=== PATIENT | female | born 1965 | race Caucasian/White ===

== ENCOUNTER 2018-02-23 09:47 | Emergency (ER) | payer OTHER ==
[2018-02-23 09:57] VITALS: BP 121/84; PULSE 62; RESP 18; TEMP 97.8
--- NOTE | 2018-02-23 10:13 | ED ---
General Adult HPI - General Chief complaint: Needlestick/Exposure Stated complaint: [facility] - needle stick Source: patient Mode of arrival: ambulatory Limitations: no limitations - History of Present Illness Initial comments: Dictation was produced using VIL[employer] dictation software. please excuse any grammatical, word or spelling errors. Chief Complaint: 52-year-old female with no significant past medical history presents with accidental needle stick at work on Monday. 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 Patient was wearing a glove at the time. She reported directly to occupational health and was instructed to follow-up with emergency department at a later date. Patient does not have detailed medical history of the patient. She reports that [facility]. She does not know if patient had history of hepatitis B, hepatitis C or HIV. She is unsure if source patient was tested for hepatitis B, hepatitis C or HIV after the exposure. Past Medical History: [reviewed, none to report] Past Surgical History:[reviewed, none to report] Social History: [denies alcohol, tobacco or illicit drug use] Family History: reviewed and noncontributory The ROS documented in this emergency department record has been reviewed and confirmed by me. Those systems with pertinent positive or negative responses have been documented in the HPI. All other systems are other negative and/or noncontributory. - Related Data Home Medications Medication Instructions Recorded Confirmed Ibuprofen [Motrin Ib] 400 mg PO Q6H PRN 02/23/18 02/23/18 L.acidoph,Paracasei, B.lactis 1 cap PO DAILY 02/23/18 02/23/18 [Probiotic] Allergies Allergy/AdvReac Type Severity Reaction Status Date / Time codeine Allergy Unknown Verified 02/23/18 10:02 omeprazole Allergy Hallucinati Verified 02/23/18 10:02 ons Review of Systems ROS Statement: Those systems with pertinent positive or pertinent negative responses have been documented in the HPI. ROS Other: All systems not noted in ROS Statement are negative. Past Medical History Past Medical History: No Reported History History of Any Multi-Drug Resistant Organisms: None Reported Past Surgical History: No Surgical Hx Reported Past Psychological History: No Psychological Hx Reported Smoking Status: Former smoker Past Alcohol Use History: None Reported Past Drug Use History: None Reported General Exam - General Exam Comments Initial Comments: Vitals: Vital signs upon arrival are within acceptable limits. PHYSICAL EXAM: General Impression: Alert and oriented x3, not in acute distress HEENT: Normocephalic atraumatic, extra-ocular movements intact, pupils equal and reactive to light bilaterally, mucous membranes moist. Cardiovascular: Heart regular rate and rhythm, S1&S2 audible, no murmurs, rubs or gallops Chest: Lungs clear to auscultation bilaterally, no rhonchi, no wheeze, no rales Abdomen: Bowel sounds present, abdomen soft, non-tender, non-distended, no organomegaly Musculoskeletal: Pulses present and equal in all extremities, no peripheral edema Motor: Power 5/5 bilaterally, no focal deficits noted Neurological: CN II-XII grossly intact, no focal motor or sensory deficits noted Skin: Intact with no visualized rashes, no external signs of injury to the needlestick site Psych: Normal affect and mood Limitations: no limitations Course Vital Signs 02/23/18 09:54 Temperature 97.8 F Pulse Rate 62 Respiratory 18 Rate Blood Pressure 121/84 O2 Sat by Pulse 99 Oximetry Medical Decision Making - Medical Decision Making ED course: 52-year-old female presents after accidentally needlestick on work. She actually poked herself after administering Lantus to her second digit on her left hand. States that the needle was a small bore needle without any blood. She was wearing gloves. She reported to occupational health who told her to report to the emergency department at a later date. She doesn't know detailed history of the patient. Patient had low risk exposure. Discussed with patient the risk and benefits of postexposure prophylaxis for HIV. Patient decided not to undergo postexposure HIV prophylaxis at this time given low risk exposure. I believe this is reasonable. Patient is not sure of her hepatitis B immunization status. Her tetanus is up-to-date. Blood sample was obtained per accidental needlestick protocol for HIV, hep C and hep B screening. Patient advised to follow-up with occupational health to proceed with postexposure prophylaxis protocol. Patient clear for discharge. Disposition Clinical Impression: Needle stick injury of finger Disposition: HOME SELF-CARE Condition: Stable Instructions: Needle Stick Injuries (ED) Is patient prescribed a controlled substance at d/c from ED?: No Referrals: Rose Hadley MD [Primary Care Provider] - 1-2 days Decision Time: 10:13
[2018-02-23 16:24] LABS: Hepatitis C IgG Antibody Non-Reactive (Non-Reactive)
[2018-02-23 17:10] LABS: HIV AB P24 Non-Reactive (Non-Reactive); HIV P24 AG Non-Reactive (Non-Reactive)
== END 2018-02-23 10:47 | disposition home or self-care (01) ==
LOC: EC 09:47
DX: S69.92XA Unspecified injury of left wrist, hand and finger(s), initial encounter (principal); Z87.891 Personal history of nicotine dependence; Z79.899 Other long term (current) drug therapy; Z88.5 Allergy status to narcotic agent; Z88.8 Allergy status to other drugs, medicaments and biological substances; W46.0XXA Contact with hypodermic needle, initial encounter; Y99.0 Civilian activity done for income or pay
CPT/HCPCS: 36415; 86803; 87340; 87390; 99282